=== PATIENT | male | born 1980 | race American Indian/Alaskan Native ===

== ENCOUNTER 2016-07-16 12:34 | Emergency (ER) | payer SELFPAY ==
--- NOTE | 2016-07-16 15:57 | Emergency Department Report ---
Eye Injury/Foreign Body - HPI Duration: 2 Days Eye Location: Right Severity: Moderate Eye Symptoms: Eye Pain: Yes, Blurred Vision: Yes, Eye Redness: Yes, Grinding/ Hammering Metal: No, Used Eye Protection: No, Contact Lens Use: No, Recalls Injury: No Other History: 36-year-old male comes in for complaint of right eye pain 2 days patient admits to itchiness and drainage and Blurred vision. ED Review of Systems ROS: Stated complaint: PINK EYE Other details as noted in HPI ED Past Medical Hx - Surgical History Hx Appendectomy: Yes - Social History Smoking Status: Never Smoker Substance Use Type: Alcohol - Medications Home Medications: Home Medications Medication Instructions Recorded Confirmed Last Taken Type Cyclobenzaprine [Flexeril] 10 mg PO PRN #15 tablet 05/27/16 Unknown Rx Ibuprofen [Motrin 800 MG tab] 800 mg PO Q8HR PRN #30 tablet 05/27/16 Unknown Rx Tobramycin/Dexamethasone [Tobradex 1 - 2 drop OD Q4HR #1 bottle 07/16/16 Unknown Rx Eye Drops 0.3/0.1%] Eye Injury Exam - Exam General: Vital signs noted. No distress. Alert and acting appropriately. - Visual Acuity Bilateral Vision Acuity Degree: 20/50 Left Vision Acuity Degree: 20/30 Right Vision Acuity Degree: 20/200 Eye Exam: Right Injection, Right Abnormal Pupil (sluggish), Right EOMI, Right Purulent Discharge, Right Fluorescein Uptake ED Course Vital Signs 07/16/16 13:04 Temperature 98.5 F Pulse Rate 67 Respiratory 18 Rate Blood Pressure 127/79 O2 Sat by Pulse 100 Oximetry ED Medical Decision Making - Medical Decision Making Discussed with patient that we will do a floor seen exam. We also did a visual acuity. I had Dr. Bautista come over and evaluate the patient's eye. We would discharge patient on TobraDex. Will have patient follow-up with the [facility] within 24-48 hours. For reevaluation of right eye. He verbalized understanding. Critical care attestation.: If time is entered above; I have spent that time in minutes in the direct care of this critically ill patient, excluding procedure time. ED Disposition Clinical Impression: Iritis acute or subacute Disposition: DISCHARGED TO HOME OR SELFCARE Is pt being admited?: No Does the pt Need Aspirin: No Condition: Stable Instructions: Iritis (ED) Additional Instructions: Use eyedrops every 2-3 hours while awake. Is very very important to follow-up with the [facility] within 24-48 hours. We have referred you to several to see which when he could get in first Prescriptions: Tobramycin/Dexamethasone [Tobradex Eye Drops 0.3/0.1%] 1 - 2 drop OD Q4HR #1 bottle Referrals: PRIMARY CAREMD [Primary Care Provider] - 3-5 Days JOSTIN BAUTISTA MD [Staff Physician] - 3-5 Days CHERRY SEWELL MD [Staff Physician] - 3-5 Days SHAYY PIERSON MD [Staff Physician] - 3-5 Days Forms: Work/School Release Form(ED)
[2016-07-16] MEDS ORDERED: [UNRECOGNIZED DRUG - OTHER] OD ONE (16:29)
[2016-07-16] MEDS ORDERED: BSS OD ONE (16:29)
[2016-07-16] MEDS ORDERED: TETCAINE OD ONE (16:29)
[2016-07-16] MEDS ORDERED: FUL-GLO OP ONE (16:36)
[2016-07-16] MEDS ORDERED: TETCAINE ONE (16:36)
[2016-07-16] MEDS ORDERED: BSS ONE (16:36)
[2016-07-16 17:27] VITALS: BP 152/88
== END 2016-07-16 17:22 | disposition home or self-care (01) ==
LOC: ED 12:34
DX: H20.00 Unspecified acute and subacute iridocyclitis (principal); Z90.49 Acquired absence of other specified parts of digestive tract
CPT/HCPCS: 99283

== ENCOUNTER 2016-07-23 13:40 | Emergency (ER) | payer SELFPAY ==
[2016-07-23] MEDS ORDERED: BSS 1 DROPS, TETRACAINE 0.5% 1 DROPS, FUL-GLO 1 MG OD ONE (18:50)
--- NOTE | 2016-07-23 18:54 | Emergency Department Report ---
Eye Injury/Foreign Body - HPI Eye Location: Right Severity: Mild Eye Symptoms: Eye Pain: Yes, Blurred Vision: No, Eye Redness: Yes, Grinding/ Hammering Metal: No, Used Eye Protection: No, Contact Lens Use: No, Recalls Injury: No, Photophobia: Yes Other History: Patient presents stating his right eye pain, redness and discharge have returned. Note: pt. seen/tx here for same cc on 07/16/16 by another provider. States eye was getting better until he ran out of the drops 3 days ago. Denies f/u with opthalmologist after he was discharged here. Denies new trauma. Denies contact lens use, fever, chills, N/V/D, skin rash. Denies s/sx of elevated BP. ED Review of Systems ROS: Stated complaint: RT EYE PAIN Other details as noted in HPI Comment: All other systems reviewed and negative ED Past Medical Hx - Past Medical History Previous Medical History?: No - Surgical History Past Surgical History?: Yes Hx Appendectomy: Yes - Social History Smoking Status: Never Smoker Substance Use Type: Alcohol - Medications Home Medications: Home Medications Medication Instructions Recorded Confirmed Last Taken Type Cyclobenzaprine [Flexeril] 10 mg PO PRN #15 tablet 05/27/16 Unknown Rx Ibuprofen [Motrin 800 MG tab] 800 mg PO Q8HR PRN #30 tablet 05/27/16 Unknown Rx Tobramycin/Dexamethasone [Tobradex 1 - 2 drop OD Q4HR #1 bottle 07/16/16 Unknown Rx Eye Drops 0.3/0.1%] Gentamicin 0.3% Ophth Oint 1 applicatio OP QHS #1 tube 07/23/16 Unknown Rx Gentamicin 0.3% Ophth Soln 1 - 2 drops OP Q4H #1 bottle 07/23/16 Unknown Rx Eye Injury Exam - Exam General: Vital signs noted. No distress. Alert and acting appropriately. Eyes: Mild injection of R conjunctiva with greenish discharge. Fundoscopic exam unremarkable. + fluoroscein pickup on Castillo lamps exam. Visual Acuity: 20/20 od , 20/20 ou, 20/50 os, Snellen, uncorrected. R eye wnl. HEAD: Normocephalic, atraumatic. ENT: unremarkable. Heart: RRR. Lungs: Equal sounds b/l. Skin: warm and dry. No rash or lesions. - Visual Acuity Left Vision Acuity Degree: 20/20 Eye Exam: Both EOMI, Neither Injection, Neither Chemosis, Neither Abnormal Pupil , Neither Eye Foreign Body, Neither Lid Foreign Body, Neither Mucous Discharge, Neither Purulent Discharge, Neither Fluorescein Uptake, Neither Corneal Edema, Neither Photophobia Right Vision Acuity Degree: 20/30 Eye Exam: Right Injection (mild), Right Abnormal Pupil (cluggish right pupil), Right Purulent Discharge, Right Fluorescein Uptake, Right Photophobia, Both EOMI , Neither Chemosis, Neither Eye Foreign Body, Neither Lid Foreign Body, Neither Mucous Discharge, Neither Corneal Edema Bilateral Vision Acuity Degree: 20/15 Eye Exam: Right Abnormal Pupil, Right Purulent Discharge, Right Fluorescein Uptake, Right Photophobia, Both EOMI, Neither Injection, Neither Chemosis, Neither Eye Foreign Body, Neither Lid Foreign Body, Neither Mucous Discharge, Neither Corneal Edema ED Course Vital Signs 07/23/16 07/23/16 14:21 14:26 Temperature 98.1 F 98.1 F Pulse Rate 91 H 91 H Respiratory 16 Rate Blood Pressure 147/93 Blood Pressure 147/93 [Left] O2 Sat by Pulse 98 98 Oximetry Critical care attestation.: If time is entered above; I have spent that time in minutes in the direct care of this critically ill patient, excluding procedure time. ED Disposition Clinical Impression: Iritis acute or subacute Disposition: DISCHARGED TO HOME OR SELFCARE Is pt being admited?: No Does the pt Need Aspirin: No Condition: Stable Instructions: Conjunctivitis (ED) Additional Instructions: Follow instructions for care. Use medications as prescribed. Neck shaky follow-up with transit clerk within the next 24 hours. And as discussed, follow up immediately with your PCP for your elevated blood pressure as not doing so in a timely manner could result in heart attack or stroke. Return to ED for new or worsening conditions. Prescriptions: Gentamicin 0.3% Ophth Oint 1 applicatio OP QHS #1 tube Gentamicin 0.3% Ophth Soln 1 - 2 drops OP Q4H #1 bottle Referrals: PRIMARY CARE, [Primary Care Provider] - 24 Hours JOSTIN OROSCO MD [Staff Physician] - 24 Hours CHERRY SEWELL MD [Staff Physician] - 24 Hours
[2016-07-23] MEDS ORDERED: BSS ONE (18:56)
[2016-07-23] MEDS ORDERED: FUL-GLO OP ONE (18:56)
[2016-07-23] MEDS ORDERED: TETRACAINE 0.5% ONE (18:56)
[2016-07-23 19:35] VITALS: BP 139/72
== END 2016-07-23 19:46 | disposition home or self-care (01) ==
LOC: ED 13:40
DX: H20.00 Unspecified acute and subacute iridocyclitis (principal)
CPT/HCPCS: 99283

== ENCOUNTER 2020-05-30 15:56 | Emergency (ER) | payer SELFPAY ==
--- NOTE | 2020-05-30 19:21 | Emergency Department Report ---
Chief Complaint: Medical Clearance Stated Complaint: CHECK UP EKG Time Seen by Provider: 05/30/20 19:15 - HPI History of Present Illness: Patient is a 40-year-old male presents emergency room for a screening EKG for his job. He has no current complaints. He denies any chest pain, shortness breath, leg swelling, cough, fever, any other complaints. He states that he just needs medical clearance for his job. No past medical history. No allergies to medications. Initial triage vitals with elevated blood pressure, I repeated in the exam room and is 142/95 On exam: Non toxic appearing, no acute distress atraumatic, normocephalic normal appearance of the eyes, PERRL, EOMI, no periorbital edema or ecchymosis moist mucus membranes regular heart rate and rhythm, no gallops, no rubs, no murmurs breath sounds are clear bilaterally, no w/r/r A&O x4, no focal neuro deficit skin is warm, dry, intact Patient has no emergent complaints at this time He is asking for a screening EKG for his job He denies any chest pain, shortness breath, leg swelling, cough, fever, any other complaints I performed his repeat blood pressure and it was 142/95 Patient given multiple referrals in order to have this completed for his job Discussed very strict return precautions and to return if he began feeling any symptoms medical screen examination performed and there is no threat to life or limb this time - Exam Vital Signs: Vital Signs 05/30/20 18:45 Temperature 98.0 F Pulse Rate 89 Respiratory 18 Rate Blood Pressure 175/119 [Right] O2 Sat by Pulse 97 Oximetry MSE screening note: Focused history and physical exam performed. Due to findings the following was ordered: ED Disposition for MSE Clinical Impression: Encounter for medical screening examination Disposition: Z-07 MED SCREENING EXAM-LEFT Is pt being admited?: No Does the pt Need Aspirin: No Condition: Stable Additional Instructions: Please follow-up with the clinic. Return to emergency room for any new or worsening symptoms walk in clinic: [facility] Address: [address] [place] [id number] Referrals: QUETA BRAN MD [Staff Physician] - 2-[address] [facility] [Provider Group] - 2-3 Days [facility], [LAB/CONTRACT] - 2-3 Days Time of Disposition: 19:20 Print Language: PRYDEINIG
[2020-05-30 19:34] VITALS: BP 145/95
== END 2020-05-30 19:35 | disposition left against medical advice (07) ==
LOC: ED 15:56
DX: Z00.8 Encounter for other general examination (principal); Z53.21 Procedure and treatment not carried out due to patient leaving prior to being seen by health care provider